=== PATIENT | female | born 1955 | race Two or more races ===

== ENCOUNTER 2022-11-30 13:32 | Outpatient (CLI) | payer OTHER | END 2022-11-30 13:48 | disposition home or self-care (01) | LOC: MRI 13:32 | PROVIDERS: ATTEND Internal Medicine Rheumatology | DX: M54.12 Radiculopathy, cervical region (principal); M54.16 Radiculopathy, lumbar region; M54.17 Radiculopathy, lumbosacral region | CPT/HCPCS: 72141; 72148 ==

== ENCOUNTER 2024-09-25 12:25 | Outpatient (CLI) | payer OTHER | END 2024-09-25 12:38 | disposition home or self-care (01) | LOC: MRI 12:25 | PROVIDERS: ATTEND Internal Medicine Rheumatology | DX: M54.12 Radiculopathy, cervical region (principal); M54.16 Radiculopathy, lumbar region; M54.17 Radiculopathy, lumbosacral region | CPT/HCPCS: 72141; 72148 ==